=== PATIENT | female | born 2000 | race Two or more races ===

== ENCOUNTER 2021-03-11 05:10 | Emergency (ER) | payer SELFPAY ==
[~2021-03-11] VITALS: Ht 157.5 cm; Wt 63.5 kg
[2021-03-11 05:38] LABS: BASOPHILS % (AUTO) 0.4 % (0.0-2.0); EOSINOPHILS % (AUTO) 0.1 % (0.0-6.0); HEMATOCRIT 43 % (33-45); HEMOGLOBIN 14.1 g/dL (11.5-14.8); LYMPHOCYTES % (AUTO) 29.2 % (20.0-44.0); MEAN CORPUSCULAR HGB CONC 33 g/dl (31.0-36.0); MEAN CORPUSCULAR VOLUME 90 fL (82-100); MONOCYTES # (AUTO) 0.7 /CMM (0.1-1.30); MONOCYTES % (AUTO) 9.6 % (2.0-12.0); NEUTROPHILS # (AUTO) 4.1 /CMM (1.8-8.9); NEUTROPHILS % (AUTO) 60.7 % (43.0-81.0); PLATELET COUNT (AUTO) 426 /CMM (150-450); RED BLOOD CELL COUNT(AUTO) 4.74 MIL/uL (4.0-5.2); WHITE BLOOD COUNT (AUTO) 6.8 K/uL (4.3-11.0)
--- NOTE | 2021-03-11 05:39 | NUR ---
spoke to mother, Summer at [phone]. Per mother, pt had a "nervous breakdown in february 2020" Per mother, pt spent 8 days in a mental institution and was diagnosed with paranoia. Mother states that pt "does not sleep and has alcohol and weed in her system"
[2021-03-11 05:46] LABS: CALCIUM, SERUM 9.5 mg/dL (8.5-10.1); POTASSIUM 3.2 mmol/L (3.5-5.1)
[2021-03-11 05:52] LABS: ALBUMIN 4.5 g/dL (3.4-5.0); BILIRUBIN,DIRECT 0.1 mg/dL (0.0-0.2); BILIRUBIN,TOTAL 0.4 mg/dL (0.2-1.0); TOTAL PROTEIN, SERUM 8.3 g/dL (6.4-8.2)
[2021-03-11 06:19] LABS: THYROID STIMULATING HORMONE 2.958 uIU/mL (0.358-3.74)
[2021-03-11] MEDS ORDERED: OLANZAPINE 10 MG VIAL IM ONE ×2 (06:24→06:30)
--- NOTE | 2021-03-11 07:49 | NUR ---
ASSESSED PT ON BED AWAKE AND ALERT, NOT IN RESPIRATORY DISTRESS, V/S STABLE, KEPT RESTED AND COMFORTABLE, WILL CONTINUE TO MONITOR.
--- NOTE | 2021-03-11 07:58 | NUR ---
PT STATED SHE WANTS TO BE DISCHARGED AND SHE NOT SUICIDAL OR HOMICIDAL. ER AWARE.
[2021-03-11 08:05] VITALS: BP 132/82
== END 2021-03-11 08:07 | disposition home or self-care (01) ==
LOC: ER 05:13
DX: F10.129 Alcohol abuse with intoxication, unspecified (principal); Y90.2 Blood alcohol level of 40-59 mg/100 ml
CPT/HCPCS: 36415; 80048; 80076; 80143; 80320; 84443; 84702; 85025; 96372; 99283; J3490; G0480